=== PATIENT | female | born 1945 | race Caucasian/White ===

== ENCOUNTER 2016-07-08 18:35 | Emergency (ER) | payer MEDICARE, MEDICAID ==
[~2016-07-08] VITALS: Ht 162.6 cm; Wt 60.0 kg
[2016-07-08 19:16] LABS: BASOPHILS % 0.5 % (0.0-2.0); EOSINOPHILS % 0.3 % (0.0-5.0); HEMATOCRIT. 37.7 % (36.0-48.0); HEMOGLOBIN. 12.8 g/dL (12.0-16.0); MEAN CORPUSCULAR HEMOGLOBIN 29.9 pg (28.0-32.0); MEAN CORPUSCULAR VOLUME 88.1 fL (81.0-99.0); MEAN PLATELET VOLUME 9.3 fl (7.4-10.4); MONOCYTES % 6.8 % (2.0-8.0); NEUTROPHILS % 67.4 % (40.0-76.0); PLATELET 299 x1000/uL (130-400); RED BLOOD CELL COUNT 4.27 mill/uL (4.2-5.4); RED CELL DISTRIBUTION WIDTH 13.3 % (11.6-14.6)
[2016-07-08 19:17] LABS: CLARITY URINE CLEAR (CLEAR); COLOR URINE YELLOW (YELLOW); GLUCOSE URINE NEGATIVE (NEGATIVE); KETONES URINE NEGATIVE (NEGATIVE); LEUKOCYTE ESTERASE URINE TRACE (NEGATIVE); NITRITE URINE NEGATIVE (NEGATIVE); OCCULT BLOOD URINE NEGATIVE (NEGATIVE); PROTEIN URINE NEGATIVE (NEGATIVE); SPECIFIC GRAVITY URINE 1.008 (1.005-1.030); UROBILINOGEN URINE 0.2 E.U./dL (0.2-1.0)
[2016-07-08 19:20] LABS: PROTHROMBIN TIME 10.3 sec
[2016-07-08 19:23] LABS: CARBON DIOXIDE 29 mEq/L (21-32); CHLORIDE 105 mEq/L (98-107)
[2016-07-08] MEDS ORDERED: LABETALOL 5MG/ML SYR 20 MG/4 ML SYRINGE IV ONE (19:30)
[2016-07-08 20:41] VITALS: BP 176/89
== END 2016-07-08 20:55 | disposition home or self-care (01) ==
LOC: ER 18:51
DX: I16.0 Hypertensive urgency (principal); I10 Essential (primary) hypertension; R42 Dizziness and giddiness; Z86.73 Personal history of transient ischemic attack (TIA), and cerebral infarction without residual deficits
CPT/HCPCS: 36415; 70450; 71010; 80053; 81001; 85025; 85610; 93005; 96374; 99285; J3490

== ENCOUNTER 2019-01-30 15:06 | Emergency (ER) | payer MEDICAID, MEDICARE ==
[~2019-01-30] VITALS: Ht 157.5 cm; Wt 74.0 kg
[2019-01-30] MEDS ORDERED: LISI30TA36 PO (15:42)
[2019-01-30] MEDS ORDERED: ASPI-1393 PO (15:42)
[2019-01-30] MEDS ORDERED: LIDOCAINE HCL 1% 20ML VIAL (Pyxis) INJ INFIL ONE (17:15)
[2019-01-30] MEDS ORDERED: BACITRACIN ZINC OINT UDPKT TOP ONE (17:15)
[2019-01-30] MEDS ORDERED: CEPHALEXIN 250MG CAPSULE PO ONE (18:30)
[2019-01-30] MEDS ORDERED: TETANUS, DIPHTHERIA, PERTUSSIS VAC/PF 0.5ML (>7YR OLD) IM ONE (18:30)
[2019-01-30 19:26] VITALS: BP 178/67
[2019-01-30] MEDS ORDERED: HYDROCODONE/ACETAMINOPHEN 5/325MG TABLET PO ONE (19:30)
== END 2019-01-30 19:40 | disposition home or self-care (01) ==
LOC: ER 15:06
DX: S61.301A Unspecified open wound of left index finger with damage to nail, initial encounter (principal); S62.631A Displaced fracture of distal phalanx of left index finger, initial encounter for closed fracture; I69.354 Hemiplegia and hemiparesis following cerebral infarction affecting left non-dominant side; I10 Essential (primary) hypertension; W26.0XXA Contact with knife, initial encounter; Y93.G1 Activity, food preparation and clean up; Y92.9 Unspecified place or not applicable; Z79.82 Long term (current) use of aspirin; Z85.830 Personal history of malignant neoplasm of bone
CPT/HCPCS: 12001; 73140; 90471; 90715; 99283; J3490